=== PATIENT | male | born 2005 | race Hispanic/Latino ===

== ENCOUNTER 2025-10-30 14:53 | Emergency (ER) | payer OTHER ==
[~2025-10-30] VITALS: Ht 165.1 cm; Wt 58.1 kg
--- NOTE | 2025-10-30 15:23 | ERN ---
General Chief Complaint: Ankle Problem Stated Complaint: RT ANKLE PAIN Time Seen by MD: 15:10 Source: police History of Present Illness Initial Comments This is a 20-year-old male coming into the ED by the custody of doris arias after suffering a 15 ft fall. Patient is unable to bear weight on his right leg after the fall. There is no visible leg swelling however patient is unable to bear any weight on the ankle. No other bodily injuries noted. Allergies: Coded Allergies: No Known Allergies (Unverified Allergy, Unknown, 10/30/25) Past Medical History Past Medical History: Hypertension Past Surgical History: None ROS Dictation REVIEW OF SYSTEMS CONSTITUTIONAL: Denies fevers, chills, or night sweats. No unintentional weight loss reported. NEUROLOGICAL: Denies headache, motor weakness, sensory deficit, vertigo/spinning sensation CARDIOVASCULAR: Denies any exertional angina, dyspnea on exertion, orthopnea, paroxysmal nocturnal dyspnea, palpitations PULMONARY: Denies any shortness of breath, cough, phlegm/sputum, hemoptysis, pleuritic chest pain. GASTROINTESTINAL: Denies any type of dysphagia to either liquids or solids. Denies nausea, vomiting, pyrosis, early satiety, abdominal pain, diarrhea, constipation GENITOURINARY: Denies frequency, urgency, nocturia, hematuria or incontinence DERMATOLOGIC: Denies rashes, itching, redness. Extremities: Admits to right ankle pain Physical Exam Physical Exam Dictation VITAL SIGNS: Reviewed. GENERAL APPEARANCE: Alert, oriented x3 HEAD AND FACE: Non-traumatic. EYES: PERRL, pink conjunctivas, eyelid no trauma, anterior chamber clear. EARS: Pinnas intact and no signs of trauma or erythema. Ear canals clear and no discharge. TMs no erythema. NOSE: No discharge, no bleeding. OROPHARYNX: Mouth normal, teeth no caries, tongue pink. Pharynx clear, no erythema. Tonsils no exudates, no abscesses noted. Mucous membrane moist. NECK: Supple, non-tender, no thyromegaly, no masses, no JVD, no bruits. BREAST: Deferred. CHEST: No tenderness, no crepitus, no paradoxical movement, no retractions. LUNGS: Clear, well-ventilated, symmetric, no rales, no wheezing, no rhonchi, no stridor, good breath sounds bilaterally. HEART: Regular rate, regular rhythm, no murmur, no gallops. VASCULAR: No peripheral edema. ABDOMEN: Soft, positive bowel sounds, nondistended, no guarding, nontender, no rebound, no masses no hepatomegaly, no splenomegaly, no Pereyra's sign, no hernias. RECTAL: Deferred. GENITAL: Deferred. NEUROLOGICAL: Normal speech, gross motor function intact, gross sensory function intact. MUSCULOSKELETAL: Neck nontender, full range of motion, back nontender, full range of motion. EXTREMITIES: Limited range of motion in the right ankle status post fall, unable to bear weight, no significant swelling. SKIN: Color pink, dry, no turgor, no rash, no lacerations, no abrasions, no contusions. LYMPHATICS: Deferred. Results EKG/XRAY/US/CT/MRI X-RAY Comment Fractures of right ankle ruled out MDM MDM: Differential diagnosis: Right ankle sprain, lateral malleolar fracture, trimalleolar fracture, medial malleolar fracture Rationale: Tests considered and ordered secondary to shared decision making include: Previous outside records reviewed: Old ER visits. Risk of complication and/or morbidity or mortality of patient management: None Medications-Per medication reconciliation Need for hospitalization: Patient does not meet criteria for hospitalization. Need for emergency major/minor surgery: No There are no social concerns with this patient. Prescription drug management Prescriptions will include symptomatic care Patient's prior external medical records from other ER visits were reviewed by me as indicated. Prior testing and results from previous visits were reviewed. Prior tests were taken into account with medical decision making and resource utilization, independent historian/historians were used to obtain complete medical history. I independently interpreted the test that were performed, results were reviewed by me and considered findings on radiology if ordered. * Medical management and examination interpretation discussions were had by me with other qualified healthcare professionals as indicated for the patient's care. ED Course Orders Procedure Category Date Status Time Ankle 2vws Rt RAD 10/30/25 Resulted 15:15 Posterior Ankle Splint WILLIAM.ER 10/30/25 In Process 15:53 Vital Signs Date Time Temp Pulse Resp B/P (MAP) Pulse Ox O2 Delivery O2 Flow Rate FiO2 10/30/25 15:37 97.9 92 20 128/78 100 Room Air* 0 21 10/30/25 14:54 97.9 124 20 135/96 100 Room Air 0 DX & DISP Disposition: Discharge Departure Impression: Primary Impression: Right ankle sprain Critical Time: 30 minutes Condition: Stable Additional Instructions: You have a right ankle sprain and there are no fractures seen on X-ray. Continue rest, ice, compression and elevation therapy for 2 weeks and keep the ankle immobilized in a splint. Referrals: SELF,REFERRAL (PCP) RIGO ALCOCER MD Time of Disposition: 16:05 KINJAL UGTIERREZ MD Oct 30, 2025 15:23 FABBY SNOW MD Oct 30, 2025 16:06
--- NOTE | 2025-10-30 16:02 | HMCIMG ---
EXAM: CR right ankle, 2 View. CLINICAL HISTORY: S/p fall, unable to bear weight COMPARISON: None provided. FINDINGS: BONES: No acute fracture or aggressive appearing osseous lesion. JOINTS: The joint spaces appear within normal limits. No dislocation. No radiographic evidence of a joint effusion. SOFT TISSUES: The soft tissues are unremarkable. IMPRESSION: No acute osseous abnormality. /[place]
--- NOTE | 2025-10-30 16:24 | NUR ---
RT ANKLE POSTERIOR NKLE SPLINT APPLIED, PT TOLERATED WELL
[2025-10-30 16:28] VITALS: BP 122/74; PULSE 81; RESP 20; TEMP 97.9; O2SAT 100
== END 2025-10-30 16:35 | disposition home or self-care (01) ==
LOC: EDH 14:53
DX: S93.401A Sprain of unspecified ligament of right ankle, initial encounter (principal); I10 Essential (primary) hypertension; W17.89XA Other fall from one level to another, initial encounter; Y93.89 Activity, other specified; Y92.89 Other specified places as the place of occurrence of the external cause; Y99.8 Other external cause status
CPT/HCPCS: 29515; 73600; 99283

== ENCOUNTER 2025-10-31 13:04 | Emergency (ER) | payer OTHER ==
[~2025-10-31] VITALS: Ht 152.4 cm; Wt 58.1 kg
--- NOTE | 2025-10-31 13:15 | ERN ---
ED Note History of Present Illness Stated Complaint: CP, BP CUSTODY Chief Complaint: Chest Pain Time Seen by MD: 13:07 Dictation: PATIENT IS A 20-YEAR-OLD MALE WITH A HISTORY OF HYPERTENSION AND HERE WITH Screen Tonic. HE INDICATED TO THE Screen Tonic STATION THAT HE WAS HAVING SOME CHEST PAIN THIS MORNING IT WAS DIFFUSE, NO FOCAL PAIN NO ARM PAIN NO BACK PAIN NO JAW PAIN. NO SOB NO NAUSEA VOMITING. STATES HE HAS BEEN IN HIS NEVER HIS CARDIAC DISEASE. HE IS NOT IN ANY PAIN AT THIS TIME. HE WAS JUST SEEN YESTERDAY AT [facility] FOR AN ANKLE INJURY TO HIS RIGHT ANKLE WHICH IS SPLINTED WITH CRUTCHES IN PLACE. Allergies: Coded Allergies: No Known Allergies (Unverified Allergy, Unknown, 10/30/25) Past Medical History Past Medical History: Hypertension Surgical History: None RN Note Reviewed/Agreed w/PFSH: Yes Review of System Dictation CONSTITUTIONAL: NEGATIVE EXCEPT FOR HPI HEAD/FACE: NEGATIVE EXCEPT FOR HPI EENT: NEGATIVE EXCEPT FOR HPI RESPIRATORY: NEGATIVE EXCEPT FOR HPI DIFFUSE CHEST PAIN NONRADIATING GASTROINTESTINAL/ABDOMINAL: NEGATIVE EXCEPT FOR HPI GENITOURINARY: NEGATIVE EXCEPT FOR HPI MUSCULOSKELETAL: NEGATIVE EXCEPT FOR HPI INTEGUMENTARY: NEGATIVE EXCEPT FOR HPI NEUROLOGICAL/PSYCH: NEGATIVE EXCEPT FOR HPI HEMATOLOGIC/LYMPHATIC: NEGATIVE EXCEPT FOR HPI ALL SYSTEMS NEGATIVE, EXCEPT NOTED ABOVE. 13 POINT REVIEW OF SYSTEMS ASSESSED AND ALL NEGATIVE EXCEPT FOR ABOVE. Initial Vital Sign VS Vital Signs Date Time Temp Pulse Resp B/P (MAP) Pulse Ox O2 Delivery O2 Flow Rate FiO2 10/31/25 13:06 98.4 84 18 142/74 99 Physical Exam Dictation VITAL SIGNS REVIEWED GENERAL APPEARANCE: ALERT, ORIENTED X 3, NO ACUTE DISTRESS, WELL DEVELOPED, NOURISHED. 0/10, NO COMPLAINTS OF PAIN AT THE PRESENT TIME. HEAD AND FACE: NON-TRAUMATIC. EYES: PERRL, PINK CONJUNCTIVAS, EYELID NO TRAUMA, ANTERIOR CHAMBER WITH ARCUS SENILIS. EARS: PINNAS INTACT AND NO SIGNS OF TRAUMA OR ERYTHEMA EAR CANALS CLEAR AND NO DISCHARGE TM NO ERYTHEMA NOSE: NO DISCHARGE, NO BLEEDING. OROPHARYNX: MOUTH NORMAL, TONGUE PINK, PHARYNX CLEAR,NO ERYTHEMA, TONSILS NO EXUDATES, NO ABSCESSES NOTED, MUCOUS MEMBRANE MOIST NECK: SUPPLE, NON-TENDER, NO THYROMEGALY, NO MASSES, NO JVD, NO BRUITS BREAST:DEFERRED CHEST:NO TENDERNESS, NO CREPITUS, NO PARADOXICAL MOVEMENT, NO RETRACTIONS LUNGS:CLEAR, WELL-VENTILATED, SYMMETRIC, NO RALES, NO WHEEZING, NO RHONCHI, NO STRIDOR, GOOD BREATH SOUNDS BILATERALLY HEART: REGULAR RATE, REGULAR RHYTHM, NO MURMUR, NO GALLOPS VASCULAR: NO PERIPHERAL EDEMA, ABDOMEN: SOFT, POSITIVE BOWEL SOUNDS, NONDISTENDED, NO GUARDING, NONTENDER, NO REBOUND, NO MASSES NO HEPATOMEGALY, NO SPLENOMEGALY, NO HUNTER'S SIGN, NO HERNIAS. RECTAL: DEFERRED GENITAL: DEFERRED NEUROLOGICAL: NORMAL SPEECH, MOTOR FUNCTION INTACT, SENSORY FUNCTION INTACT MUSCULOSKELETAL: NECK NONTENDER, FULL RANGE OF MOTION, BACK NONTENDER, FULL RANGE OF MOTION, EXTREMITIES: NONTENDER, FULL RANGE OF MOTION SKIN: COLOR PINK, DRY, NO TURGOR, NO RASH, NO LACERATIONS, NO ABRASIONS, NO CONTUSIONS. LYMPHATIC: DEFERRED Results (Laboratory/Radiology) Laboratory/Radiology Laboratory Tests Test 10/31/25 13:19 Troponin I High Sensitivity 6 ng/L (4-75) Labs Reviewed?: Yes EKG Comment: 1332/EKG SINUS RHYTHM/HEART RATE 79/AXIS NORMAL/EARLY REPOLARIZATION SEEN IN [facility] ED Course ED Course Orders Procedure Category Date Status Time 12 Lead Ekg Tracing- EKG 10/31/25 Logged Technical 13:12 Troponin I High LAB 10/31/25 Complete Sensitivity 13:14 Vital Signs Date Time Temp Pulse Resp B/P (MAP) Pulse Ox O2 Delivery O2 Flow Rate FiO2 10/31/25 13:06 98.4 84 18 142/74 99 HEART Score Response (Comments) Value History: Low suspicion (0) 0 EKG: Repolarization changes 1 Age: < 45yrs (0) 0 Risk Factors: No known risk factors (0) 0 Initial Troponin: Normal limit (0) 0 Total 1 Medical Decision Making [facility] 1350/MEDICAL DECISION-MAKING BASED ON EKG AND HIGH SENSITIVITY TROPONIN. NO ACUTE FINDINGS PATIENT DENIES PAIN AT THE PRESENT TIME. DISCHARGED HOME WITH MEDICAL CLEARANCE FOR INCARCERATION AND TRAVEL DX & DISP Disposition: Discharge Departure Impression: Primary Impression: Atypical chest pain Additional Impression: Anxiety Condition: Stable Additional Instructions: FOLLOW-UP WITH PRIMARY CARE PROVIDER IN 1 TO 2 DAYS. TAKE MEDICATIONS DIRECTED HERE IN THE EMERGENCY ROOM. OKAY TO CONTINUE HOME MEDICATIONS UNLESS OTHERWISE DISCUSSED DURING YOUR VISIT IN THE EMERGENCY ROOM TODAY. RETURN TO YOUR NEAREST EMERGENCY ROOM IF SYMPTOMS WORSEN OR IF THERE IS NO IMPROVEMENT. CALL 911 IF YOU NEED IMMEDIATE ASSISTANCE. TAKE TYLENOL OR MOTRIN [id number] NEEDED AND IF NO CONTRAINDICATIONS ARE PRESENT. INCREASE ORAL HYDRATION. A WOUND CULTURE OR URINE CULTURE WAS ORDERED HERE IN THE EMERGENCY ROOM DEPARTMENT PLEASE FOLLOW-UP WITH PRIMARY CARE PROVIDER AND ADVISE THEM TO GET REPEAT PORTS FROM OUR FACILITY. IF YOU HAD ANY ALON WRAP/SPLINTS THAT WERE APPLIED HERE, PLEASE DO NOT REMOVE THEM UNTIL YOU SEE YOUR PRIMARY CARE OR SPECIALTY. DIET AND ACTIVITY TOLERATED. PATIENT IS MEDICALLY CLEARED FOR INCARCERATION AND TRAVEL. Referrals: SELF,REFERRAL (PCP) Time of Disposition: 13:52 I have reviewed the case, and I agree with, Diagnosis and Plan VIVIEN ALEMANP Oct 31, 2025 13:15
[2025-10-31 14:02] VITALS: BP 138/78; PULSE 81; RESP 20; TEMP 98.3; O2SAT 99
--- NOTE | 2025-10-31 14:23 | EKG ---
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
== END 2025-10-31 14:12 | disposition home or self-care (01) ==
LOC: EEVIPCON 13:04 → EDH 13:04
DX: R07.89 Other chest pain (principal); F41.9 Anxiety disorder, unspecified; I10 Essential (primary) hypertension
CPT/HCPCS: 84484; 93005; 99284